=== PATIENT | female | born 1995 | race Caucasian/White ===

== ENCOUNTER 2017-12-02 18:35 | Emergency (ER) | payer OTHER ==
[2017-12-02 18:43] VITALS: RESP 18
[2017-12-02] MEDS ORDERED: IBUPROFEN 800 MG TAB PO STA (18:55)
--- NOTE | 2017-12-02 19:21 | ED ---
Lower Extremity Injury HPI - General Chief Complaint: Extremity Injury, Lower Stated Complaint: right foot pain Time Seen by Provider: 12/02/17 18:42 Source: patient, EMS Mode of arrival: EMS Limitations: no limitations - History of Present Illness Initial Comments: This a 22-year-old female no past medical history presents today for chief complaint of right anterior for pain. Patient states that around 6:00 PM this evening she [place] she [place] striking the top of her right foot on a rock. Pt stated she noted immediate pain in the right foot and some tingling. pt was able to weight bear on the ball of her foot ambulating to [facility] where she called EMS for transfer to hospital. Pt denies numbness, muscles weakness, or loss of sensation. EMS placed a splint on scene and transferred in stable condition. Pt denies hitting head or injury to any other extremity. Patient denies any recent fever, chills, shortness of breath, chest pain, back pain, abdominal pain, nausea or vomiting, numbness or tingling , dysuria or hematuria, constipation or diarrhea, headaches or visual changes, or any other complaints. - Related Data Allergies Allergy/AdvReac Type Severity Reaction Status Date / Time morphine Allergy Unknown Verified 12/02/17 18:43 Review of Systems ROS Statement: Those systems with pertinent positive or pertinent negative responses have been documented in the HPI. ROS Other: All systems not noted in ROS Statement are negative. Past Medical History Past Medical History: No Reported History History of Any Multi-Drug Resistant Organisms: None Reported Past Surgical History: No Surgical Hx Reported Past Psychological History: Anxiety, Bipolar, Depression Smoking Status: Never smoker Past Alcohol Use History: Occasional Past Drug Use History: None Reported General Exam - General Exam Comments Initial Comments: General: The patient is awake and alert, in no distress, and does not appear acutely ill. Eye: Pupils are equal, round and reactive to light, extra-ocular movements are intact. No nystagmus. There is normal conjunctiva bilaterally. No signs of icterus. Ears, nose, mouth and throat: There are moist mucous membranes and no oral lesions. Cardiovascular: There is a regular rate and rhythm. No murmur, rub or gallop is appreciated. Respiratory: Lungs are clear to auscultation, respirations are non-labored, breath sounds are equal. No wheezes, stridor, rales, or rhonchi. Musculoskeletal: Full ROM with dorsiflexion, plantarflexion, inversion and everion, pt admits to tenderness with plantar flexion. Strength 5/5 with these movements. Sensation intact. DP pulses equal bilaterally 2+. Compartments are soft and compressible. Neurological: A&O x 3. CN II-XII intact, There are no obvious motor or sensory deficits. Coordination appears grossly intact. Speech is normal. Skin: Skin is warm and dry and no rashes or lesions are noted. Small <1/4cm abrasion superficial to the right anterior foot with mild surrounding swelling. Psychiatric: Cooperative, appropriate mood & affect, normal judgment. Limitations: no limitations Course Vital Signs 12/02/17 18:41 Temperature 98.1 F Pulse Rate 102 H Respiratory 18 Rate Blood Pressure 144/86 O2 Sat by Pulse 99 Oximetry Medical Decision Making - Medical Decision Making 22yo female with no PMH who presents today for cc of pain to right dorsum of foot and small abrasion. Pt given ibuprofen for pain mgmt. XR obtained (-) for acute fracture or dislocation, joint spacing appear WNL. Pt states tetanus is UTD. Bandage applied to the foot. Case discussed with Dr. Orozco who also reviewed XR. Agreed with impression and plan. Pt to f/u with PCP in 1-2 days and return to the ED if symptoms. For symptomatic care pt was instructed to keep abrasion clean and dry, apply ice as needed for soft tissue swelling and to take ibuprofen or tylenol over the counter as needed for pain. Pt agreed wtih plan, i answered all questions to the best of my ability, discussing cx of abrasions such as secondary infectio. Pt d/c in stable condition. Disposition Clinical Impression: Foot abrasion, Foot contusion Disposition: HOME SELF-CARE Condition: Good Instructions: Contusion in Adults (ED) Additional Instructions: Please use over the counter pain medication as discussed. Please follow-up with family doctor in the next 2 days of symptoms have not improved. Please return to emergency room if the symptoms increase or worsen or for any other concerns. Is patient prescribed a controlled substance at d/c from ED?: No Referrals: None,Stated [Primary Care Provider] - 1-2 days Time of Disposition: 19:55
--- NOTE | 2017-12-02 19:58 | XR ---
EXAMINATION TYPE: XR foot complete RT DATE OF EXAM: 12/02/2017 CLINICAL HISTORY: Fall, pain TECHNIQUE: Frontal, lateral, and oblique images of the right foot are obtained. COMPARISON: None FINDINGS: There is no acute fracture/dislocation evident in the right foot. The joint spaces appear within normal limits. The overlying soft tissue appears unremarkable. IMPRESSION: There is no acute fracture or dislocation.
[2017-12-02 20:06] VITALS: BP 113/70; PULSE 91; TEMP 99.2
== END 2017-12-02 20:03 | disposition home or self-care (01) ==
LOC: EC 18:35
DX: S90.31XA Contusion of right foot, initial encounter (principal); Z88.5 Allergy status to narcotic agent; W16.622A Jumping or diving into natural body of water striking bottom causing other injury, initial encounter; Y93.11 Activity, swimming; Y92.828 Other wilderness area as the place of occurrence of the external cause
CPT/HCPCS: 99283